=== PATIENT | male | born 1950 | race Caucasian/White ===

== ENCOUNTER 2020-07-25 13:52 | Day surgery (SDC) | payer MEDICARE, OTHER ==
[~2020-07-25] VITALS: Ht 180.3 cm; Wt 95.9 kg
[2020-07-25] MEDS ORDERED: SIMV10TA21 PO (14:06)
[2020-07-25] MEDS ORDERED: LISI-898 PO (14:06)
[2020-07-25] MEDS ORDERED: BIOFTAB PO (14:09)
[2020-07-25] MEDS: GLUCAGON INJ 1MG VIAL IV STA (16:33)
[2020-07-25 16:46] LABS: BASO % 0.5 % (0.0-1.0); EOS % 0.4 % (0.0-3.0); HEMOGLOBIN 15.7 g/dl (13.5-17.5); LYMPH # 0.8 10^3/uL (1.5-5.0); LYMPH % 10.5 % (24.0-44.0); MEAN CORPUSCULAR HEMOGLOBIN 30.7 pg (27.0-33.0); MEAN CORPUSCULAR HGB CONC 32.7 g/dl (32.0-36.5); MEAN CORPUSCULAR VOLUME 93.8 fl (80.0-96.0); MONO # 0.5 10^3/uL (0.0-0.8); MONO % 7.3 % (0.0-5.0); NEUTROPHILS # 5.9 10^3/uL (1.5-8.5); NEUTROPHILS % 80.8 % (36.0-66.0); PLATELET COUNT, AUTOMATED 172 10^3/uL (150-450); RED BLOOD COUNT 5.12 10^6/uL (4.30-6.10); WHITE BLOOD COUNT 7.4 10^3/uL (4.0-10.0)
[2020-07-25 17:09] LABS: BLOOD UREA NITROGEN 21 MG/DL (7-18); CALCIUM LEVEL 9.1 MG/DL (8.8-10.2); CARBON DIOXIDE LEVEL 29 MEQ/L (21-32); CHLORIDE LEVEL 108 MEQ/L (98-107); CREATININE FOR GFR 1.04 MG/DL (0.70-1.30); GLOMERULAR FILTRATION RATE > 60.0 (>49); GLUCOSE, FASTING 108 MG/DL (70-100); POTASSIUM SERUM 3.8 MEQ/L (3.5-5.1); SODIUM LEVEL 140 MEQ/L (136-145)
[2020-07-25] MEDS ORDERED: OCUVCAP2 PO (17:38)
[2020-07-25] MEDS ORDERED: METOCLOPRAMIDE INJ 10MG/2ML VIAL (J2765 PER 1) As Ordered ONE (20:51)
[2020-07-25] MEDS ORDERED: ROCURONIUM BROMIDE 50 MG/5 ML VIAL As Ordered ONE (20:51)
[2020-07-25] MEDS ORDERED: dexameTHASONE 4 MG/ML 1ML VIAL (J1100 PER 1MG) As Ordered ONE (20:51)
[2020-07-25] MEDS ORDERED: ONDANSETRON 4MG/2ML VIAL As Ordered ONE (20:51)
[2020-07-25] MEDS ORDERED: SUCCINYLCHOLINE 100 MG/5 ML SYRINGE (J0330) As Ordered ONE (20:51)
[2020-07-25] MEDS ORDERED: MIDAZOLAM INJ 2MG/2ML VIAL (J2250 PER 1MG) As Ordered ONE (20:51)
[2020-07-25] MEDS ORDERED: propofoL 200 MG/20 ML VIAL As Ordered ONE (20:51)
[2020-07-25] MEDS ORDERED: fentaNYL 100 MCG/2 ML INJECTION (J3010) As Ordered ONE (20:51)
[2020-07-25] MEDS ORDERED: LIDOCAINE 2% 100MG/5ML SDV (FOR ANES.) As Ordered ONE (20:51)
[2020-07-25] MEDS ORDERED: ONDANSETRON 4MG/2ML VIAL IV PRN (21:30)
[2020-07-25] MEDS ORDERED: LR 1,000 ML IV SCH (21:30)
[2020-07-25 22:00] VITALS: BP 133/75
--- NOTE | 2020-07-26 08:25 | HPE ---
HISTORY AND PHYSICAL DATE OF ADMISSION: 07/25/2020 CHIEF COMPLAINT: Food stuck in his throat. HISTORY OF PRESENT ILLNESS: Patient is a 69-year-old male, he is a schoolteacher, at [facility] this morning, around lunchtime, he was eating a bite of chicken breast when he felt it get lodged in his throat. He tried to cough it up without any success and the nurse at the school called the ambulance for him and brought him into the hospital. He has been in the emergency room for the last 6 hours. They have attempted cindy sagar swallows and glucagon without any improvement so I was called to evaluate. He denies any problems with his esophagus in the past, no problems with swallowing, no prior upper endoscopy or lower endoscopy. No prior abdominal surgeries. PAST MEDICAL HISTORY: Positive for a little bit of arthritis. PAST SURGICAL HISTORY: Vasectomy. SOCIAL HISTORY: Negative, denies drug, alcohol, or tobacco abuse. FAMILY HISTORY: Noncontributory. REVIEW OF SYSTEMS: Pertinent positives and negatives as stated in the history of present illness (HPI). PHYSICAL EXAMINATION: General: Alert and oriented times three, no acute distress. Vital signs: Stable, afebrile. HEENT: Pupils equally round and reactive to light and accommodation. Heart: S1, S2, regular rate and rhythm. Lungs: Clear to auscultation bilaterally. Abdomen: Soft, nontender, nondistended. Extremities: No clubbing, cyanosis, or edema. No labs obtained. No imaging obtained. ASSESSMENT AND PLAN: Patient again is a 69-year-old male with likely food impaction with chicken somewhere in the esophagus. Recommendation is to proceed with upper endoscopy and removal of the food bolus. Risks and benefits of the procedure not limited to but including bleeding, infection, perforation, and damage to surrounding structures were discussed in detail with the patient, informed consent was obtained, and procedure was planned. Postoperatively, assuming everything goes well, he will be discharged home this evening and can followup with me in the office as an outpatient, to schedule to outpatient colonoscopy.
--- NOTE | 2020-07-26 09:50 | RO ---
OPERATIVE NOTE DATE OF OPERATION: 07/25/2020 PREOPERATIVE DIAGNOSIS: Esophageal food impaction. POSTOPERATIVE DIAGNOSIS: Esophageal food impaction, gastric ulcer with adhered clot and ulcerated distal esophageal mass. PROCEDURE: Esophagogastroduodenoscopy with removal of esophageal food obstruction; gastric ulcer biopsy; esophageal biopsy. SURGEON: Nicanor Hoover DO ASSIST: None. ANESTHESIA: General. EBL: None. COMPLICATIONS: None. INDICATIONS FOR PROCEDURE: The patient is a 69-year-old male who presents with a food impaction in his esophagus during lunch today. He was unable to relieve it with cindy sagar and Glucagon in the emergency room. Therefore, recommendation was to take him to the operating room for EGD. Risks and benefits of the procedure not limited to but including bleeding, infection, perforation, damage to surrounding structures, need for further surgery was discussed in detail with the patient and informed consent was obtained and procedure was planned. PROCEDURE: The patient was brought back to operating room 3. After sufficient sedation the time out was done to confirm proper patient, proper procedure. Endoscope was passed down through the oropharynx into the esophagus revealing food bolus in the mid to distal esophagus. With a couple attempts I was able to push the food bolus into the stomach. After doing so the scope was passed through the pylorus into the duodenum revealing normal duodenum. The scope was brought back into the prepyloric area where there were a few small gastric ulcers identified, no active bleeding but there was visible clot adherent to the ulcers. Biopsy was taken for H. pylori as well as histology. The scope was then brought back into the esophagus. There was some slight stricturing distally in the esophagus and just proximal to that there appeared to be an ulcerated mass towards the lateral posterior side of the esophagus. Biopsies were taken there as well for histology. Scope was then retracted back and removed. The patient was awakened from anesthesia and sent to the recovery room in stable condition.
== END 2020-07-25 22:07 | disposition home or self-care (01) ==
LOC: M ED 13:52 → EDBD 13:52 → M SDC 13:53
PROVIDERS: ATTEND Surgery
DX: T18.128A Food in esophagus causing other injury, initial encounter (principal); E78.5 Hyperlipidemia, unspecified; I10 Essential (primary) hypertension; K25.9 Gastric ulcer, unspecified as acute or chronic, without hemorrhage or perforation; K22.8 Other specified diseases of esophagus; Y92.9 Unspecified place or not applicable; Y93.89 Activity, other specified; Y99.9 Unspecified external cause status
CPT/HCPCS: 43239; 43247; 80048; 85025; 87486; 87581; 87633; 87798; 88305; 99284; J0330; J1100; J1610; J2250; J2405; J2765; J3010

== ENCOUNTER → 2020-07-26 | Outpatient (CLI) | payer MEDICARE, OTHER ==
[~2020-07-26] MED LIST: BIOFTAB PO; ISOVUE-370 76% 100ML VIAL As Ordered ONE; LISI-542 PO; OCUVCAP2 PO; SIMV10TA21 PO
--- NOTE | 2020-07-26 09:43 | REP ---
INDICATION: ESOPHAGEAL MASS AMANDO READING FOR DR DAMIAN COMPARISON: None TECHNIQUE: Axial contrast enhanced images from the thoracic inlet to the upper abdomen with coronal and sagittal reformations using 75 ml Isovue 370 intravenous contrast material. This CT examination was performed using the following dose reduction techniques: Automated exposure control, adjustment of mA and/or kv according to the patient's size, and use of iterative reconstruction technique. FINDINGS: The visualized esophagus appears essentially normal by chest CT evaluation. There is a moderate hiatal hernia just above the diaphragmatic hiatus. No periesophageal fat stranding or adenopathy is appreciated. No obvious discrete esophageal mass lesion identified. Further evaluation of the mediastinum demonstrates minimal atherosclerotic changes to the thoracic aorta and coronary arteries without aortic aneurysm or dissection. No cardiomegaly or pericardial effusion. Pulmonary vasculature appears normal. No axillary, hilar, or mediastinal adenopathy noted. The bilateral lung virgen are well aerated and clear. No consolidation, suspicious nodule or mass lesion. No effusion. No pneumothorax. Tracheobronchial tree is patent. Musculoskeletal structures are intact. IMPRESSION: 1. Moderate hiatal hernia. Otherwise normal appearance to the visualized esophagus and paraesophageal soft tissues. 2. No acute mediastinal or pleuroparenchymal process. <Electronically signed by Reynaldo Mcdermott > 07/26/20 0917
== END ==
LOC: M RAD 08:57
PROVIDERS: ATTEND Surgery
DX: R22.1 Localized swelling, mass and lump, neck (principal)
CPT/HCPCS: 71260; Q9967

== ENCOUNTER → 2020-09-27 | Outpatient (CLI) | payer MEDICARE, OTHER ==
[~2020-09-27] MED LIST changes: -ISOVUE-370 76% 100ML VIAL As Ordered ONE; -LISI-542 PO; +LISI-898 PO; +OMEP1CAP73 PO
== END ==
LOC: M LABSMTC 09:55
PROVIDERS: ATTEND Anesthesiology
DX: Z01.812 Encounter for preprocedural laboratory examination (principal); Z20.822 Contact with and (suspected) exposure to COVID-19

== ENCOUNTER 2020-10-02 06:44 | Day surgery (SDC) | payer MEDICARE, OTHER ==
[~2020-10-02] VITALS: Ht 180.3 cm; Wt 96.2 kg
[~2020-10-02 06:44] MED LIST changes: +NS 1,000 ML IV ONE
[2020-10-02] MEDS ORDERED: propofoL 500 MG/50 ML VIAL As Ordered ONE (07:20)
[2020-10-02] MEDS ORDERED: LIDOCAINE 2% 100MG/5ML SDV (FOR ANES.) As Ordered ONE (07:20)
--- NOTE | 2020-10-02 08:04 | ROOR ---
Patient Name: Fam Roblero Procedure Date: 10/02/2020 7:31 AM Date of : 1950 Age: 69 Room: [facility] Gender: Male Note Status: Finalized Procedure: Upper GI endoscopy Indications: Follow-up of acute gastric ulcer with hemorrhage Providers: DO Maday Goodwin MD: Rivka Renee NP Requesting Provider: Medicines: Propofol per Anesthesia Complications: No immediate complications. Procedure: Pre-Anesthesia Assessment: - Prior to the procedure, a History and Physical was performed, and patient medications and allergies were reviewed. The patient is competent. The risks and benefits of the procedure and the sedation options and risks were discussed with the patient. All questions were answered and informed consent was obtained. Patient identification and proposed procedure were verified by the physician, the nurse, the glass breaker and the refinish technician in the endoscopy suite. Mental Status Examination: alert and oriented. Airway Examination: normal oropharyngeal airway and neck mobility. Respiratory Examination: clear to auscultation. CV Examination: normal. Prophylactic Antibiotics: The patient does not require prophylactic antibiotics. Prior Anticoagulants: The patient has taken no previous anticoagulant or antiplatelet agents. ASA Grade Assessment: II - A patient with mild systemic disease. After reviewing the risks and benefits, the patient was deemed in satisfactory condition to undergo the procedure. The anesthesia plan was to use monitored anesthesia care (MAC). Immediately prior to administration of medications, the patient was re-assessed for adequacy to receive sedatives. The heart rate, respiratory rate, oxygen saturations, blood pressure, adequacy of pulmonary ventilation, and response to care were monitored throughout the procedure. The physical status of the patient was re-assessed after the procedure. The Endoscope was introduced through the mouth, and advanced to the second part of duodenum. The upper GI endoscopy was accomplished without difficulty. The patient tolerated the procedure well. Findings: Non-severe esophagitis with no bleeding was found. Diffuse minimal inflammation characterized by erythema was found in the prepyloric region of the stomach. Biopsies were taken with a cold forceps for histology. Estimated blood loss was minimal. A medium-sized hiatal hernia was present. Impression: - Non-severe esophagitis. - Gastritis. Biopsied. - Medium-sized hiatal hernia. Recommendation: - Patient has a contact number available for emergencies. The signs and symptoms of potential delayed complications were discussed with the patient. Return to normal activities tomorrow. Written discharge instructions were provided to the patient. - Await pathology results. - Return to my office at appointment to be scheduled. Procedure Code(s): --- Professional --- 16316, Esophagogastroduodenoscopy, flexible, transoral; with biopsy, single or multiple Diagnosis Code(s): --- Professional --- K20.9, Esophagitis, unspecified K29.70, Gastritis, unspecified, without bleeding K44.9, Diaphragmatic hernia without obstruction or gangrene K25.0, Acute gastric ulcer with hemorrhage CPT copyright 2019 [employer]. All rights reserved. The codes documented in this report are preliminary and upon manager of project management review may be revised to meet current compliance requirements. Nicanor Hoover DO 10/02/2020 8:04:11 AM Electronically signed by Nicanor Hoover DO Number of Addenda: 0 Note Initiated On: 10/02/2020 7:31 AM Estimated Blood Loss: Estimated blood loss: none.
--- NOTE | 2020-10-02 08:08 | ROOR ---
Patient Name: Fam Roblero Procedure Date: 10/02/2020 7:32 AM Date of : 1950 Age: 69 Room: [facility] Gender: Male Note Status: Finalized Procedure: Colonoscopy Indications: Screening for colorectal malignant neoplasm Providers: DO Maday Goodwin MD: Rivka Renee NP Requesting Provider: Medicines: Propofol per Anesthesia Complications: No immediate complications. Procedure: Pre-Anesthesia Assessment: - Prior to the procedure, a History and Physical was performed, and patient medications and allergies were reviewed. The patient is competent. The risks and benefits of the procedure and the sedation options and risks were discussed with the patient. All questions were answered and informed consent was obtained. Patient identification and proposed procedure were verified by the physician, the nurse, the anesthesiologist and the drug abuse technician in the endoscopy suite. Mental Status Examination: normal. Airway Examination: normal oropharyngeal airway and neck mobility. Respiratory Examination: clear to auscultation. CV Examination: normal. Prophylactic Antibiotics: The patient does not require prophylactic antibiotics. Prior Anticoagulants: The patient has taken no previous anticoagulant or antiplatelet agents. ASA Grade Assessment: II - A patient with mild systemic disease. After reviewing the risks and benefits, the patient was deemed in satisfactory condition to undergo the procedure. The anesthesia plan was to use monitored anesthesia care (MAC). Immediately prior to administration of medications, the patient was re-assessed for adequacy to receive sedatives. The heart rate, respiratory rate, oxygen saturations, blood pressure, adequacy of pulmonary ventilation, and response to care were monitored throughout the procedure. The physical status of the patient was re-assessed after the procedure. The Colonoscope was introduced through the anus and advanced to the ileocecal valve. The colonoscopy was performed without difficulty. The patient tolerated the procedure well. Findings: A less than 5 mm polyp was found in the cecum. The polyp was flat. Biopsies were taken with a cold forceps for histology. Estimated blood loss was minimal. A 9 mm polyp was found in the rectum. The polyp was pedunculated. The polyp was removed with a hot snare. Resection and retrieval were complete. Estimated blood loss was minimal. Non-bleeding internal hemorrhoids were found during retroflexion. The hemorrhoids were Grade I (internal hemorrhoids that do not prolapse). Impression: - One less than 5 mm polyp in the cecum. Biopsied. - One 9 mm polyp in the rectum, removed with a hot snare. Resected and retrieved. - Non-bleeding internal hemorrhoids. Recommendation: - Patient has a contact number available for emergencies. The signs and symptoms of potential delayed complications were discussed with the patient. Return to normal activities tomorrow. Written discharge instructions were provided to the patient. - Await pathology results. - Repeat colonoscopy in 3 - 5 years for surveillance based on pathology results. - Return to my office at appointment to be scheduled. Procedure Code(s): --- Professional --- 17327, Colonoscopy, flexible; with removal of tumor(s), polyp(s), or other lesion(s) by snare technique 07492, 59, Colonoscopy, flexible; with biopsy, single or multiple Diagnosis Code(s): --- Professional --- Z12.11, Encounter for screening for malignant neoplasm of colon K63.5, Polyp of colon K62.1, Rectal polyp K64.0, First degree hemorrhoids CPT copyright 2019 [employer]. All rights reserved. The codes documented in this report are preliminary and upon remote coders review may be revised to meet current compliance requirements. Nicanor Hoover DO 10/02/2020 8:07:37 AM Electronically signed by Nicanor Hoover DO Number of Addenda: 0 Note Initiated On: 10/02/2020 7:32 AM Estimated Blood Loss: Estimated blood loss was minimal.
[2020-10-02 08:25] VITALS: BP 140/78
== END 2020-10-02 08:27 | disposition home or self-care (01) ==
LOC: M OPP 06:44
PROVIDERS: ATTEND Surgery
DX: Z12.11 Encounter for screening for malignant neoplasm of colon (principal); K62.1 Rectal polyp; K63.89 Other specified diseases of intestine; K29.70 Gastritis, unspecified, without bleeding; K20.90 Esophagitis, unspecified without bleeding; K44.9 Diaphragmatic hernia without obstruction or gangrene; K25.0 Acute gastric ulcer with hemorrhage; Z79.899 Other long term (current) drug therapy

== ENCOUNTER 2023-12-22 07:56 | Day surgery (SDC) | payer MEDICARE, OTHER ==
[~2023-12-22] VITALS: Ht 180.3 cm; Wt 100.7 kg
[~2023-12-22 07:56] MED LIST changes: +GLUC1TAB58 PO; -LISI-898 PO; +LISI5TAB11 PO; -NS 1,000 ML IV ONE; +PRESCAP PO
[2023-12-22 08:49] VITALS: TEMP 98.4
[2023-12-22] MEDS ORDERED: propofoL 500 MG/50 ML VIAL As Ordered ONE (08:53)
[2023-12-22 09:17] VITALS: BP 139/86; O2SAT 95
== END 2023-12-22 09:26 | disposition home or self-care (01) ==
LOC: M OPP 07:56
PROVIDERS: ATTEND Surgery
DX: Z12.11 Encounter for screening for malignant neoplasm of colon (principal); Z86.010 Personal history of colon polyps; K64.1 Second degree hemorrhoids; K57.30 Diverticulosis of large intestine without perforation or abscess without bleeding